=== PATIENT | female | born 1950 | race Caucasian/White ===

== ENCOUNTER 2022-08-20 19:10 | Emergency (ER) | payer OTHER, MEDICARE ==
[2022-08-20 19:32] VITALS: BP 142/99; PULSE 83; RESP 16; TEMP 99.1; BMI 22.8
[2022-08-20] MEDS ORDERED: CIPROFLOXACIN 500 MG TABLET (RESTRICTED TO ID) PO ONE (21:39)
[2022-08-20] MEDS ORDERED: CIPROFLOXACIN 250 MG TABLET (RESTRICTED TO ID) PO ONE (21:43)
== END 2022-08-20 21:48 | disposition home or self-care (01) ==
LOC: FER 19:10
DX: R31.0 Gross hematuria (principal); R35.0 Frequency of micturition; R39.15 Urgency of urination; N39.0 Urinary tract infection, site not specified
CPT/HCPCS: 81003; 81015; 87086; 87186; 99283-25